=== PATIENT | male | born 1990 | race American Indian/Alaskan Native ===

== ENCOUNTER 2017-07-24 18:24 | Emergency (ER) | payer SELFPAY ==
[2017-07-24 19:35] VITALS: BP 118/69
[2017-07-24] MEDS ORDERED: MOTRIN PO ONE (21:32)
[2017-07-24] MEDS ORDERED: NORCO 7.5/325 PO ONE (22:06)
--- NOTE | 2017-07-24 22:10 | Emergency Department Report ---
ED Extremity Problem HPI - General Chief complaint: Extremity Injury, Lower Stated complaint: FALL/BACK PAIN Time Seen by Provider: 07/24/17 22:01 Source: patient Mode of arrival: Wheelchair Limitations: No Limitations - History of Present Illness Initial comments: Patient is a 26-year-old gentleman who was at home his 6-year-old picked up their 6-month-old who placed the child on the couch. Patient saw that the 7- month-old falling from the couch and he lunged towards the child neurologic. Patient Was Able to Catch the Child However He Ended up Doing a Split with His Left Leg in Front of His Right Leg behind Him. Patient States He Didn't Topple over to the Left Side. Patient Does Have Having Intense 10 Out Of 10 Pain in the Left Groin and Left Lateral Thigh. Patient States It Hurts Worse When He Is Sitting and When He's Trying to Stand He Is Able to Bear Weight. Patient Has No Other Injuries at This Time. Severity scale (0 -10): 7 - Related Data Previous Rx's Medication Instructions Recorded Last Taken Type HYDROcodone/APAP 5-325 [[place] 1 each PO Q6HR PRN #15 tablet 07/24/17 Unknown Rx 5/325] Ibuprofen [Motrin] 800 mg PO Q8HR PRN #20 tablet 07/24/17 Unknown Rx methOCARBAMOL [Robaxin TAB] 500 mg PO Q6H PRN #15 tablet 07/24/17 Unknown Rx Allergies Allergy/AdvReac Type Severity Reaction Status Date / Time No Known Allergies Allergy Unverified 07/24/17 19:30 ED Review of Systems ROS: Stated complaint: FALL/BACK PAIN Other details as noted in HPI Comment: All other systems reviewed and negative ED Past Medical Hx - Past Medical History Previous Medical History?: No - Surgical History Past Surgical History?: No - Social History Smoking Status: Current Every Day Smoker Substance Use Type: Marijuana - Medications Home Medications: Home Medications Medication Instructions Recorded Confirmed Last Taken Type HYDROcodone/APAP 5-325 [[place] 1 each PO Q6HR PRN #15 tablet 07/24/17 Unknown Rx 5/325] Ibuprofen [Motrin] 800 mg PO Q8HR PRN #20 tablet 07/24/17 Unknown Rx methOCARBAMOL [Robaxin TAB] 500 mg PO Q6H PRN #15 tablet 07/24/17 Unknown Rx ED Physical Exam - General Limitations: No Limitations General appearance: alert, in no apparent distress - Head Head exam: Present: atraumatic, normocephalic - Eye Eye exam: Present: normal appearance - ENT ENT exam: Present: mucous membranes moist - Neck Neck exam: Present: normal inspection - Respiratory Respiratory exam: Present: normal lung sounds bilaterally. Absent: respiratory distress, wheezes, rales - Cardiovascular Cardiovascular Exam: Present: regular rate, normal rhythm. Absent: systolic murmur, diastolic murmur, rubs, gallop - GI/Abdominal GI/Abdominal exam: Present: soft, normal bowel sounds - Rectal Rectal exam: Present: deferred - Extremities Exam Extremities exam: Present: normal inspection, tenderness (patient has tenderness in the left inguinal region as well as the left lateral thigh. He has no bony tenderness over the iliac crest. Patient is able to stand but the active standing causes him intense pain.) - Back Exam Back exam: Present: normal inspection - Neurological Exam Neurological exam: Present: alert, oriented X3 - Psychiatric Psychiatric exam: Present: normal affect, normal mood - Skin Skin exam: Present: warm, dry, intact, normal color. Absent: rash ED Course Vital Signs 07/24/17 19:30 Temperature 98.5 F Pulse Rate 66 Respiratory 18 Rate Blood Pressure 118/69 O2 Sat by Pulse 98 Oximetry ED Medical Decision Making - Medical Decision Making X-rays not warranted for this patient. She'll be given pain medicine be discharged home with crutches. Critical care attestation.: If time is entered above; I have spent that time in minutes in the direct care of this critically ill patient, excluding procedure time. ED Disposition Clinical Impression: Groin strain Qualifiers: Encounter type: initial encounter Laterality: left Qualified Code(s): S76.212A - Strain of adductor muscle, fascia and tendon of left thigh, initial encounter Disposition: - TO HOME OR SELFCARE Is pt being admited?: No Does the pt Need Aspirin: No Condition: Fair Instructions: Groin Strain (ED) Referrals: PRIMARY CARE, [Primary Care Provider] - 3-5 Days Time of Disposition: 22:09
== END 2017-07-24 22:20 | disposition home or self-care (01) ==
LOC: ED 18:24
DX: S76.212A Strain of adductor muscle, fascia and tendon of left thigh, initial encounter (principal); M79.652 Pain in left thigh; F17.200 Nicotine dependence, unspecified, uncomplicated; F12.10 Cannabis abuse, uncomplicated; W17.89XA Other fall from one level to another, initial encounter; Y93.89 Activity, other specified; Y92.89 Other specified places as the place of occurrence of the external cause; Y99.8 Other external cause status